=== PATIENT | male | born 1945 | race Caucasian/White ===

== ENCOUNTER 2018-06-05 14:29 | Emergency (ER) | payer OTHER ==
--- OUTSIDE RECORDS SUMMARY | 2018-06-05 14:32 | XMS REPORT | Clinical Summary ---
:1945 Author Organization [facility] Address [address] [place] [address] Care Team Providers Name Role Phone Pcp, No Primary Care Provider Unavailable Allergies Active Allergy Reactions Severity Noted Date Comments Penicillins 08/29/2016 Unknown reaction;as a child Medications Medication Sig Dispensed Refills Start Date End Date Status metFORMIN Take 1,000 mg by 0 Active (GLUCOPHAGE) 1000 mouth 2 (two) MG tablet times daily with breakfast and dinner. tamsulosin (FLOMAX) Take 0.4 mg by 0 Active 0.4 mg Cp24 24 hr mouth 2 (two) capsule times daily. losartan (COZAAR) Take 100 mg by 0 Active 100 MG tablet mouth daily. simvastatin (ZOCOR) Take 40 mg by 0 Active 40 MG tablet mouth nightly. finasteride Take 5 mg by 0 Active (PROSCAR) 5 mg mouth daily. tablet docusate sodium Take 1 capsule 10 capsule 0 11/02/2017 11/12/2017 (COLACE) 100 MG (100 mg total) by capsule mouth 2 (two) times daily for 10 days. acetaminophen-codei Take 1 tablet by 30 tablet 0 11/02/2017 11/12/2017 ne (TYLENOL #3) mouth every 4 300-30 mg per (four) hours as tablet needed for Pain for up to 10 days. Max Daily Amount: 6 tablets Active Problems Problem Noted Date Right renal mass 11/01/2017 Renal mass 10/31/2017 Encounters Date Type Specialty Care Team Description 10/31/2017 Surgery Omid Escobedo MD LAPAROSCOPY,NEPHREC EDENILSON-PARTIAL 10/31/2017 Anesthesia Event Tessy Cross NP 10/31/2017 - Hospital Encounter General Internal Omid Escobedo 11/02/2017 Medicine MD Ross 10/24/2017 Hospital Encounter Omid Escobedo MD 10/24/2017 Hospital Encounter Pre-Admission Omid Escobedo Testing MD Ross 10/24/2017 Outside Orders Omid Escobedo MD 10/24/2017 Orders Only Urology Keila Ji 10/23/2017 Orders Only Angelica Munoz Right kidney mass (Primary Dx); Pre-op testing after 06/04/2017 Social History Tobacco Use Types Packs/Day Years Used Date Former Smoker Smokeless Tobacco: Never Used Comments: quit 1971 Alcohol Use Drinks/Week oz/Week Comments Yes rare Sex Assigned at Date Recorded Not on file Job Start Date Occupation Industry Not on file Not on file Not on file Travel History Travel Start Travel End No recent travel history available. Last Filed Vital Signs Vital Sign Reading Time Taken Blood Pressure 164/80 11/02/2017 11:00 AM CDT Pulse 89 11/02/2017 11:00 AM CDT Temperature 35.9 C (96.6 F) 11/02/2017 11:00 AM CDT Respiratory Rate 17 11/02/2017 11:00 AM CDT Oxygen Saturation 94% 11/02/2017 11:00 AM CDT Inhaled Oxygen Concentration - - Weight 112.6 kg (248 lb 3.2 oz) 10/31/2017 6:03 AM CDT Height 177.8 cm (5' 10") 10/31/2017 6:03 AM CDT Body Mass Index 35.61 10/31/2017 6:03 AM CDT Plan of Treatment Not on file Procedures Procedure Name Priority Date/Time Associated Comments Diagnosis POCT-GLUCOSE METER Routine 11/02/2017 12:41 Results for this PM CDT procedure are in the results section. POCT-GLUCOSE METER Routine 11/02/2017 8:49 Results for this AM CDT procedure are in the results section. CBC W/PLT COUNT & Routine 11/02/2017 4:05 Results for this AUTO DIFFERENTIAL AM CDT procedure are in the results section. CBC W/PLT COUNT & Routine 11/02/2017 4:05 Results for this AUTO DIFFERENTIAL AM CDT procedure are in the results section. BASIC METABOLIC PANEL Routine 11/02/2017 4:05 Results for this (7) AM CDT procedure are in the results section. TRANSFUSION SERVICE 11/01/2017 6:00 REPORT - SCAN PM CDT POCT-GLUCOSE METER Routine 11/01/2017 5:18 Results for this PM CDT procedure are in the results section. POCT-GLUCOSE METER Routine 11/01/2017 12:39 Results for this PM CDT procedure are in the results section. POCT-GLUCOSE METER Routine 11/01/2017 7:42 Results for this AM CDT procedure are in the results section. CBC W/PLT COUNT & Routine 11/01/2017 4:25 Results for this AUTO DIFFERENTIAL AM CDT procedure are in the results section. CBC W/PLT COUNT & Routine 11/01/2017 4:25 Results for this AUTO DIFFERENTIAL AM CDT procedure are in the results section. BASIC METABOLIC PANEL Routine 11/01/2017 4:25 Results for this (7) AM CDT procedure are in the results section. BASIC METABOLIC PANEL Routine 10/31/2017 10:55 Results for this (7) PM CDT procedure are in the results section. POCT-GLUCOSE METER Routine 10/31/2017 10:08 Results for this PM CDT procedure are in the results section. POCT-GLUCOSE METER Routine 10/31/2017 6:51 Results for this PM CDT procedure are in the results section. PREPARE RBC STAT 10/31/2017 1:57 Results for this PM CDT procedure are in the results section. HEMOGLOBIN AND Routine 10/31/2017 1:49 Results for this HEMATOCRIT PM CDT procedure are in the results section. BASIC METABOLIC PANEL Routine 10/31/2017 1:49 Results for this (7) PM CDT procedure are in the results section. TISSUE EXAM AP Routine 10/31/2017 1:10 Results for this PM CDT procedure are in the results section. PROCEDURE W/ DAVINCI 10/31/2017 7:30 Renal mass AM CDT Special Needs (DAVINCI - XI NOT REQUESTED, INTRAOPERATIVE ULTRASOUND, BK ULTRASOUND PROBE, AIR SEAL) ROBOTIC LAPAROSCOPY,NEPHRECTOMY-PARTIAL 10/31/2017 7:30 AM CDT Renal mass Special Needs (DAVINCI - XI NOT REQUESTED, INTRAOPERATIVE ULTRASOUND, BK ULTRASOUND PROBE, AIR SEAL) POCT-GLUCOSE METER Routine 10/31/2017 6:25 AM CDT TRANSFUSION SERVICE REPORT 10/25/2017 5:54 PM CDT - SCAN XR CHEST 2 VIEWS Routine 10/24/2017 2:19 PM CDT CBC W/PLT COUNT & AUTO Routine 10/24/2017 2:01 PM CDT Results for this DIFFERENTIAL procedure are in the results section. TYPE AND SCREEN, AUTOMATED Routine 10/24/2017 2:01 PM CDT APTT Routine 10/24/2017 2:01 PM CDT PROTHROMBIN TIME/INR Routine 10/24/2017 2:01 PM CDT CBC W/PLT COUNT & AUTO Routine 10/24/2017 2:01 PM CDT Results for this DIFFERENTIAL procedure are in the results section. BASIC METABOLIC PANEL (7) Routine 10/24/2017 2:01 PM CDT URINE CULTURE Routine 10/24/2017 2:01 PM CDT after 06/04/2017 Results POC-Glucose meter (11/02/2017 12:41 PM CDT)Only the most recent of8 resultswithin the time period is included. POC-Glucose Meter 184 (H)Comment: TESTED AT 70 - 110 mg/dL [facility] [address] [facility] [place] [address] Specimen Blood Performing Organization Address City/State/Zipcode Phone Number [address] [address] [phone] CENTER CBC with platelet count + automated diff (11/02/2017 4:05 AM CDT)Only the most recent of3 resultswithin the time period is included. WBC 11.1 (H) 3.5 - 10.5 K/L [facility] RBC 4.42 (L) 4.63 - 6.08 M/L [facility] Hemoglobin 14.2 13.7 - 17.5 GM/DL [facility] Hematocrit 41.8 40.1 - 51.0 % [facility] MCV 94.6 (H) 79.0 - 92.2 fL [facility] MCH 32.1 25.7 - 32.2 pg [facility] MCHC 34.0 32.3 - 36.5 GM/DL [facility] RDW 12.7 11.6 - 14.4 % [facility] Platelets 204 150 - 450 K/CU MM [facility] MPV 10.7 9.4 - 12.4 fL [facility] nRBC 0 0 - 0 /100 WBC [facility] % Neutros 73 % [facility] % Lymphs 15 % [facility] % Monos 10 % [facility] % Eos 1 % [facility] % Baso 0 % [facility] # Neutros 8.12 (H) 1.78 - 5.38 K/L [facility] # Lymphs 1.61 1.32 - 3.57 K/L [facility] # Monos 1.15 (H) 0.30 - 0.82 K/L [facility] # Eos 0.16 0.04 - 0.54 K/L [facility] # Baso 0.04 0.01 - 0.08 K/L [facility] Immature Granulocytes-Relative 0 0 - 1 % [facility] Specimen Blood Performing Organization Address City/State/Zipcode Phone Number [facility] [address] [place] [address] CENTER Basic Metabolic Panel - POD 1 (11/02/2017 4:05 AM CDT)Only the most recent of5 resultswithin the time period is included. Sodium 137 136 - 145 meq/L [facility] Potassium 4.5 3.5 - 5.1 meq/L [facility] Chloride 106 98 - 107 meq/L [facility] CO2 23 22 - 29 meq/L [facility] BUN 13 7 - 21 mg/dL [facility] Creatinine 0.94 0.57 - 1.25 mg/dL [facility] Glucose 205 (H) 70 - 105 mg/dL [facility] Calcium 8.8 8.4 - 10.2 mg/dL [facility] EGFR 78Comment: ESTIMATED GFR IS mL/min/1.73 sq m [facility] NOT ACCURATE CREATININE [facility] CLEARANCE IN PREDICTING GLOMERULAR FILTRATION RATE. ESTIMATED GFR IS NOT APPLICABLE FOR DIALYSIS PATIENTS. Specimen Blood Narrative Performed At Before arterial line is discontinued [facility] Performing Organization Address City/[facility] Centercode Phone Number [place] [id number] [phone] CENTER TRANSFUSION SERVICE REPORT - SCAN (11/01/2017 6:00 PM CDT)Only the most recent of2 resultswithin the time period is included. Narrative Performed At Prepare RBC (10/31/2017 1:57 PM CDT) CROSSMATCH COMPATIBLE SAFETRACE TX Unit ABO O Pos SAFETRACE TX UNIT NUMBER [id number] [place]AF[place]ACE [place] Status RETURNED FROM ISSUE SAFETRACE TX Blood Bank Product RED BLOOD CELLS SAFETRACE TX PRODUCT CODE [id number] SAFETRACE TX CROSSMATCH COMPATIBLE SAFETRACE TX Unit ABO O Pos SAFETRACE TX UNIT NUMBER [id number] [facility]AFET[facility]ACE TX Status RETURNED FROM ISSUE SAFETRACE TX Blood Bank Product RED BLOOD CELLS [place] PRODUCT CODE [id number] SAFETRACE [place] Performing Organization Address City/State/Zipcode Phone Number [place] Hemoglobin and hematocrit (10/31/2017 1:49 PM CDT) Hemoglobin 14.1 13.7 - 17.5 GM/DL [facility] Hematocrit 43.2 40.1 - 51.0 % [facility] Specimen Blood Performing Organization Address City/State/Zipcode Phone Number [facility] [address] [place] [address] CENTER Tissue Exam (10/31/2017 1:10 PM CDT) Case Report Surgical Pathology Report Case: [id number] [facility] Authorizing Provider:Omid Escobedo MD Collected: 10/31/2017 [address] [facility] Ordering Location: [facility] PERIOPERATIVE Received: 10/31/2017 1504 SERVICES Pathologist: Emilia Carmona MD Specimen:Soft Tissue, Other, right renal mass DIAGNOSIS KIDNEY, RIGHT, PARTIAL NEPHRECTOMY: [facility] - CLEAR CELL RENAL CELL CARCINOMA, 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 [facility] - TUMOR SIZE: 3.5 X 3.0 X 2.0 CM - LIMITED TO THE KIDNEY - NO LYMPHOVASCULAR INVASION IDENTIFIED - NO NECROSIS SEEN - MARGINS NEGATIVE FOR CARCINOMA - SEE SYNOPTIC REPORT Signing Pathologist Direct Phone Line: [phone] SYNOPTIC REPORT KIDNEY: Nephrectomy(Kidney Res - All Specimens) [facility] SPECIMEN Procedure:Partial nephrectomy Specimen Laterality:Right TUMOR Tumor Site:Lower pole Histologic Type:Clear cell renal cell carcinoma Histologic Grade (WHO / ISUP Grade):G3: Nucleoli conspicuous and eosinophilic at 100x magnification Tumor Size:Greatest dimension in Centimeters (cm): 3.5 Centimeters (cm) Additional Dimension in Centimeters (cm):3 Centimeters (cm) Additional Dimension in Centimeters (cm):2 Centimeters (cm) Tumor Focality:Unifocal Tumor Extent: Tumor Extension:Tumor limited to kidney Accessory Findings: Sarcomatoid Features:Not identified Rhabdoid Features:Not identified Tumor Necrosis:Not identified Lymphovascular Invasion:Not identified MARGINS Margins:Uninvolved by invasive carcinoma LYMPH NODES Regional Lymph Nodes:No lymph nodes submitted or found PATHOLOGIC STAGE CLASSIFICATION (pTNM, AJCC 8th Edition) Primary Tumor (pT):pT1a Regional Lymph Nodes (pN):pNX ADDITIONAL FINDINGS Pathologic Findings in Nonneoplastic Kidney:None identified CPT Code(s) 80436 [facility] CLINICAL HISTORY Right renal mass [facility] SPECIMEN SOURCE Right renal mass [facility] GROSS DESCRIPTION Received fresh labeled "soft tissue, other", description "right renal mass" is a 6.0 x 4.5 x 3.0 cm right partial nephrectomy specimen. [facility] The capsular sections is purple-jovel to yellow and exhibits focal attached perinephric adipose tissue. The specimen is serially sectioned to reveal a 3.5 x 3.0 x 2.0 cm, ill- defined, yellow-gold to red, lobulated, hemorrhagic masswhich abuts the parenchymal resection margin and capsule. The surrounding uninvolved renal parenchyma is dark-brown, homogeneous, dense and unremarkable. Ink code: Parenchymal resection margin-black, capsule-blue. [employer] sequential sections to include the entire mass are submitted in cassettes [id number]. DB/ew MICROSCOPIC DESCRIPTION Performed. [facility] Specimen Tissue - Soft Tissue, Other Performing Organization Address City/State/Zipcode Phone Number [facility] [address] [place] [address] CENTER XR chest 2 views (10/24/2017 2:19 PM CDT) Narrative Performed At Addendum Begins [employer] RIS REPORT STATUS:A Addendum: CLINICAL INFORMATION: Robotic laparoscopic partial nephrectomy Signed: Madina Chambers MD Report Verified Date/Time:11/16/2017 16:11:26 Reading Location: [facility] C013Y CT Body Reading Room Addendum Ends FINAL REPORT PA and Lateral views of the chest dated 10/24/2017 Clinical information: preop Comment:Heart is normal in size. Pulmonary vasculature is unremarkable. A 7 mm calcified granuloma is seen in the left upper lobe. The rest of the lungs are clear. No pulmonary infiltrate or pleural effusion is present. Focal pleural calcification is seen in the left mid hemithorax. Impression:No active cardiopulmonary disease. Signed: Madina Chambers MD Report Verified Date/Time:10/24/2017 16:02:45 Reading Location: [address] Radiology Reading Room Procedure Note Interface, External Ris In - 11/16/2017 5:02 PM CDT Addendum Begins REPORT STATUS:A Addendum: CLINICAL INFORMATION: Robotic laparoscopic partial nephrectomy Signed: Madina Chambers MD Report Verified Date/Time: 11/16/2017 16:11:26 Reading Location: [facility] C013Y CT Body Reading Room Addendum Ends FINAL REPORT PA and Lateral views of the chest dated 10/24/2017 Clinical information: preop Comment: Heart is normal in size. Pulmonary vasculature is unremarkable. A 7 mm calcified granuloma is seen in the left upper lobe. The rest of the lungs are clear. No pulmonary infiltrate or pleural effusion is present. Focal pleural calcification is seen in the left mid hemithorax. Impression: No active cardiopulmonary disease. Signed: Madina Chambers MD Report Verified Date/Time: 10/24/2017 16:02:45 Reading Location: [address] Radiology Reading Room Performing Organization Address [facility] Centerconv Phone Number GE RIS Type and screen, automated (10/24/2017 2:01 PM CDT) ABO/RH AUTOMATED (BEAKER) O POSITIVE [facility] Ab Scrn NEGATIVE [facility] Specimen Blood Performing Organization Address [facility] Centercode Phone Number [address] [address] aPTT (10/24/2017 2:01 PM CDT) PTT 27.5 22.5 - 36.0 seconds [facility] Specimen Blood Performing Organization Address [facility] Centercode Phone Number [address] [address] [phone] CENTER Prothrombin time/INR (10/24/2017 2:01 PM CDT) Protime 13.9 11.7 - 14.7 seconds [facility] INR 1.1 <=5.9 [facility] Specimen Blood Narrative Performed At [facility] RECOMMENDED COUMADIN/WARFARIN INR THERAPY RANGES STANDARD DOSE: 2.0 - 3.0 Includes: PROPHYLAXIS for venous thrombosis, systemic embolization; TREATMENT for venous thrombosis and/or pulmonary embolus. HIGH RISK: Target INR is 2.5-3.5 for patients with mechanical heart valves. Performing Organization Address City/State/Zipcode Phone Number [facility] [address] [place] [address] CENTER Urine culture (10/24/2017 2:01 PM CDT) Result 30-39,000 col/mL skin dyana [facility] Specimen Urine - Urine, Unspecified Source Performing Organization Address [facility] Centercode Phone Number [address] [address] [phone] CENTER after 06/04/2017 Insurance Payer Benefit Plan / Group Subscriber ID Type Phone Address MEDICARE MEDICARE A B xxxxxxxxxx Medicare FOR LIFE xxxxxxxxxxx Other Govt (, [place], [facility], etc.) Advance Directives For more information, please contact:[address] [phone] Code Status Date Activated Date Inactivated Comments Full Code 10/31/2017 6:54 PM 11/02/2017 6:38 PM This code status was determined by: Patient
--- OUTSIDE RECORDS SUMMARY | 2018-06-05 14:33 | XMS REPORT ---
:1945 Author Organization [facility] Address [address] [place] [address] [address]. Pat[address] [place] [address] Care Team Providers Name Role Phone DUSTIN ESCOBEDO Unavailable Unavailable Problems This patient has no known problems. Allergies, Adverse Reactions, Alerts This patient has no known allergies or adverse reactions. Medications This patient has no known medications. Results Test Description Test Time Test Comments Text Results Atomic Results Result Comments RAD, CHEST, 2 2017-11-16 16:11:00 Reason for Addendum BeginsREPORT VIEWS exam:->preop STATUS:A Addendum: CLINICAL INFORMATION: Robotic laparoscopic partial nephrectomy Signed: Madina Chambers Verified Date/Time: 11/16/2017 16:11:26 Reading Location: [facility] C013Y CT Body Reading RoomAddendum EndsFINAL REPORT PA and Lateral views of the [...] No active cardiopulmonary disease. 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 - TUMOR SIZE: 3.5 X 3.0 X 2.0 CM - LIMITED TO THE KIDNEY - NO LYMPHOVASCULAR INVASION IDENTIFIED - NO NECROSIS SEEN - MARGINS NEGATIVE FOR CARCINOMA - SEE SYNOPTIC REPORT Signing Pathologist Direct Phone Line: [phone] y signed by Emilia Carmona MD on 11/06/2017 at 5:21 PMKIDNEY: Nephrectomy (Kidney Res - All Specimens)SPECIMEN Procedure: Partial nephrectomy Specimen Laterality: Right TUMOR Tumor Site: Lower pole Histologic Type: Clear cell renal cell carcinoma Histologic Grade (WHO / ISUP Grade): G3: Nucleoli conspicuous and eosinophilic at 100x magnification Tumor Size: Greatest dimension in Centimeters (cm): 3.5 Centimeters (cm) Additional Dimension in Centimeters (cm): 3 Centimeters (cm) Additional Dimension in Centimeters (cm): 2 Centimeters (cm) Tumor Focality: Unifocal Tumor Extent: Tumor Extension: Tumor limited to kidney Accessory Findings: Sarcomatoid Features: Not identified Rhabdoid Features: Not identified Tumor Necrosis: Not identified Lymphovascular Invasion: Not identified MARGINS Margins: Uninvolved by invasive carcinoma LYMPH NODES Regional Lymph Nodes: No lymph nodes submitted or found PATHOLOGIC STAGE CLASSIFICATION (pTNM, AJCC 8th Edition) Primary Tumor (pT): pT1a Regional Lymph Nodes (pN): pNX ADDITIONAL FINDINGS Pathologic Findings in Nonneoplastic Kidney: None identified [id number] renal mass Right renal mass Received fresh labeled "soft tissue, other", description "right renal mass" is a 6.0 x 4.5 x 3.0 cm right partial nephrectomy specimen.The capsular sections is purple-jovel to yellow and exhibits focal attached perinephric adipose tissue.The specimen is serially sectioned to reveal a 3.5 x 3.0 x 2.0 cm, ill-defined, yellow-gold to red, lobulated, hemorrhagic masswhich abuts the parenchymal resection margin and capsule.The surrounding uninvolved renal parenchyma is dark-brown, homogeneous, dense and unremarkable.Ink code: Parenchymal resection margin-black, capsule-blue.Representati ve sequential sections to include the entire mass are submitted in cassettes A1-A13. DB/ew Performed. POCT-GLUCOSE METER 2017-11-02 12:43:00 Test Item Value Reference Range Comments POC-GLUCOSE METER (BEAKER) (test 184 mg/dL 70-110 TESTED AT [facility] [address] ezgo=1712) [facility] [address] POCT-GLUCOSE [id number] 08:51:00 Test Item Value Reference Range Comments POC-GLUCOSE METER (BEAKER) 202 mg/dL 70-110 TESTED AT [facility] [address] [facility] (test fnbn=7757) [facility] [address] BASIC METABOLIC [id number] 05:12:00 Test Item Value Reference Range Comments SODIUM (BEAKER) (test 137 meq/L 136-145 ixcm=704) POTASSIUM (BEAKER) (test 4.5 meq/L 3.5-5.1 phsh=177) CHLORIDE (BEAKER) (test 106 meq/L 98-107 kqhd=180) CO2 (BEAKER) (test 23 meq/L 22-29 nswh=280) BLOOD UREA NITROGEN 13 mg/dL 7-21 (BEAKER) (test dclf=851) CREATININE (BEAKER) (test 0.94 mg/dL 0.57-1.25 qppy=029) GLUCOSE RANDOM (BEAKER) 205 mg/dL 70-105 (test dnpk=461) CALCIUM (BEAKER) (test 8.8 mg/dL 8.4-10.2 osgf=151) EGFR (BEAKER) (test 78 mL/min/1.73 sq m ESTIMATED GFR IS NOT rxzy=4901) ACCURATE CREATININE CLEARANCE IN PREDICTING GLOMERULAR FILTRATION RATE. ESTIMATED GFR IS NOT APPLICABLE FOR DIALYSIS PATIENTS. Before arterial line is discontinuedCB W/PLT COUNT & AUTO [id number] 06-21 04:53:00 Test Item Value Reference Range Comments WHITE BLOOD CELL COUNT (BEAKER) (test nphg=443) 11.1 K/ L 3.5-10.5 RED BLOOD CELL COUNT (BEAKER) (test nxoo=524) 4.42 M/ L 4.63-6.08 HEMOGLOBIN (BEAKER) (test zdll=653) 14.2 GM/DL 13.7-17.5 HEMATOCRIT (BEAKER) (test lugn=762) 41.8 % 40.1-51.0 MEAN CORPUSCULAR VOLUME (BEAKER) (test cnxd=286) 94.6 fL 79.0-92.2 MEAN CORPUSCULAR HEMOGLOBIN (BEAKER) (test 32.1 pg 25.7-32.2 wnuv=880) MEAN CORPUSCULAR HEMOGLOBIN CONC (BEAKER) (test 34.0 GM/DL 32.3-36.5 bfre=348) RED CELL DISTRIBUTION WIDTH (BEAKER) (test 12.7 % 11.6-14.4 wsnv=302) PLATELET COUNT (BEAKER) (test piik=176) 204 K/CU MM 150-450 MEAN PLATELET VOLUME (BEAKER) (test rlyv=741) 10.7 fL 9.4-12.4 NUCLEATED RED BLOOD CELLS (BEAKER) (test 0 /100 WBC 0-0 xamt=190) NEUTROPHILS RELATIVE PERCENT (BEAKER) (test 73 % isij=625) LYMPHOCYTES RELATIVE PERCENT (BEAKER) (test 15 % djln=311) MONOCYTES RELATIVE PERCENT (BEAKER) (test 10 % jhfo=005) EOSINOPHILS RELATIVE PERCENT (BEAKER) (test 1 % kwje=254) BASOPHILS RELATIVE PERCENT (BEAKER) (test 0 % avsc=809) NEUTROPHILS ABSOLUTE COUNT (BEAKER) (test 8.12 K/ L 1.78-5.38 bzvw=585) LYMPHOCYTES ABSOLUTE COUNT (BEAKER) (test 1.61 K/ L 1.32-3.57 juud=876) MONOCYTES ABSOLUTE COUNT (BEAKER) (test 1.15 K/ L 0.30-0.82 ghrl=962) EOSINOPHILS ABSOLUTE COUNT (BEAKER) (test 0.16 K/ L 0.04-0.54 jzdo=239) BASOPHILS ABSOLUTE COUNT (BEAKER) (test 0.04 K/ L 0.01-0.08 gsrg=336) IMMATURE GRANULOCYTES-RELATIVE PERCENT (BEAKER) 0 % 0-1 (test kbkc=7556) POCT-GLUCOSE [id number] 17:21:00 Test Item Value Reference Range Comments POC-GLUCOSE METER (BEAKER) 225 mg/dL 70-110 TESTED AT [address] (test lbxx=6638) [facility] [address] POCT-GLUCOSE [id number] 12:41:00 Test Item Value Reference Range Comments POC-GLUCOSE METER (BEAKER) 178 mg/dL 70-110 TESTED AT [address] (test pyrd=5888) [facility] [address] POCT-GLUCOSE [id number] 07:44:00 Test Item Value Reference Range Comments POC-GLUCOSE METER (BEAKER) 178 mg/dL 70-110 TESTED AT [facility] [address] [facility] (test csqq=0677) [facility] [address] BASIC METABOLIC [id number] 05:38:00 Test Item Value Reference Range Comments SODIUM (BEAKER) (test 139 meq/L 136-145 kzmu=110) POTASSIUM (BEAKER) (test 4.1 meq/L 3.5-5.1 uimm=790) CHLORIDE (BEAKER) (test 107 meq/L 98-107 gryn=384) CO2 (BEAKER) (test 24 meq/L 22-29 rlkq=307) BLOOD UREA NITROGEN 15 mg/dL 7-21 (BEAKER) (test arbj=975) CREATININE (BEAKER) (test 0.98 mg/dL 0.57-1.25 dzdw=135) GLUCOSE RANDOM (BEAKER) 146 mg/dL 70-105 (test sory=093) CALCIUM (BEAKER) (test 8.7 mg/dL 8.4-10.2 igyy=902) EGFR (BEAKER) (test 75 mL/min/1.73 sq m ESTIMATED GFR IS NOT uipg=1754) ACCURATE CREATININE CLEARANCE IN PREDICTING GLOMERULAR FILTRATION RATE. ESTIMATED GFR IS NOT APPLICABLE FOR DIALYSIS PATIENTS. [facility] AUTO [id number] 06-20 05:30:00 Test Item Value Reference Range Comments WHITE BLOOD CELL COUNT (BEAKER) (test bfdq=588) 13.0 K/ L 3.5-10.5 RED BLOOD CELL COUNT (BEAKER) (test xmgg=919) 4.54 M/ L 4.63-6.08 HEMOGLOBIN (BEAKER) (test ozwr=447) 14.0 GM/DL 13.7-17.5 HEMATOCRIT (BEAKER) (test pphw=914) 43.6 % 40.1-51.0 MEAN CORPUSCULAR VOLUME (BEAKER) (test qnfd=039) 96.0 fL 79.0-92.2 MEAN CORPUSCULAR HEMOGLOBIN (BEAKER) (test 30.8 pg 25.7-32.2 jlst=439) MEAN CORPUSCULAR HEMOGLOBIN CONC (BEAKER) (test 32.1 GM/DL 32.3-36.5 tthq=893) RED CELL DISTRIBUTION WIDTH (BEAKER) (test 12.8 % 11.6-14.4 hgdg=907) PLATELET COUNT (BEAKER) (test hxbd=662) 226 K/CU MM 150-450 MEAN PLATELET VOLUME (BEAKER) (test rmag=064) 10.8 fL 9.4-12.4 NUCLEATED RED BLOOD CELLS (BEAKER) (test 0 /100 WBC 0-0 qbgb=057) NEUTROPHILS RELATIVE PERCENT (BEAKER) (test 72 % mday=048) LYMPHOCYTES RELATIVE PERCENT (BEAKER) (test 18 % bfdl=622) MONOCYTES RELATIVE PERCENT (BEAKER) (test 10 % znqo=550) EOSINOPHILS RELATIVE PERCENT (BEAKER) (test 1 % oupl=548) BASOPHILS RELATIVE PERCENT (BEAKER) (test 0 % sykl=579) NEUTROPHILS ABSOLUTE COUNT (BEAKER) (test 9.29 K/ L 1.78-5.38 cbid=192) LYMPHOCYTES ABSOLUTE COUNT (BEAKER) (test 2.27 K/ L 1.32-3.57 npgx=862) MONOCYTES ABSOLUTE COUNT (BEAKER) (test 1.29 K/ L 0.30-0.82 itnz=543) EOSINOPHILS ABSOLUTE COUNT (BEAKER) (test 0.06 K/ L 0.04-0.54 jlsi=977) BASOPHILS ABSOLUTE COUNT (BEAKER) (test 0.02 K/ L 0.01-0.08 wlsr=289) IMMATURE GRANULOCYTES-RELATIVE PERCENT (BEAKER) 0 % 0-1 (test qyzp=5209) BASIC METABOLIC [id number] 23:33:00 Test Item Value Reference Range Comments SODIUM (BEAKER) (test 140 meq/L 136-145 jlnw=860) POTASSIUM (BEAKER) (test 5.0 meq/L 3.5-5.1 otwc=115) CHLORIDE (BEAKER) (test 104 meq/L 98-107 wkny=688) CO2 (BEAKER) (test 25 meq/L 22-29 rhpt=767) BLOOD UREA NITROGEN 19 mg/dL 7-21 (BEAKER) (test sukx=898) CREATININE (BEAKER) (test 1.15 mg/dL 0.57-1.25 wsyj=381) GLUCOSE RANDOM (BEAKER) 179 mg/dL 70-105 (test lqrd=192) CALCIUM (BEAKER) (test 9.1 mg/dL 8.4-10.2 zdiz=490) EGFR (BEAKER) (test 62 mL/min/1.73 sq m ESTIMATED GFR IS NOT inmh=9489) ACCURATE CREATININE CLEARANCE IN PREDICTING GLOMERULAR FILTRATION RATE. ESTIMATED GFR IS NOT APPLICABLE FOR DIALYSIS PATIENTS. POCT-GLUCOSE [id number] 22:11:00 Test Item Value Reference Range Comments POC-GLUCOSE METER (BEAKER) 169 mg/dL 70-110 TESTED AT [facility] [address] [facility] (test fpum=2094) [facility] [address] POCT-GLUCOSE [id number] 18:53:00 Test Item Value Reference Range Comments POC-GLUCOSE METER (BEAKER) 211 mg/dL 70-110 TESTED AT [address] (test mwnp=6892) [place] [id number] BASIC METABOLIC [id number] 14:20:00 Test Item Value Reference Range Comments SODIUM (BEAKER) (test 136 meq/L 136-145 iufz=472) POTASSIUM (BEAKER) (test 5.7 meq/L 3.5-5.1 ckgu=011) CHLORIDE (BEAKER) (test 107 meq/L 98-107 msey=997) CO2 (BEAKER) (test 21 meq/L 22-29 zfco=352) BLOOD UREA NITROGEN 23 mg/dL 7-21 (BEAKER) (test ipzf=630) CREATININE (BEAKER) (test 1.21 mg/dL 0.57-1.25 jivf=375) GLUCOSE RANDOM (BEAKER) 261 mg/dL 70-105 (test efpw=308) CALCIUM (BEAKER) (test 8.3 mg/dL 8.4-10.2 rudc=107) EGFR (BEAKER) (test 59 mL/min/1.73 sq m ESTIMATED GFR IS NOT umhi=0806) ACCURATE CREATININE CLEARANCE IN PREDICTING GLOMERULAR FILTRATION RATE. ESTIMATED GFR IS NOT APPLICABLE FOR DIALYSIS PATIENTS. [facility] [id number] 14:03:00 Test Item Value Reference Range Comments HEMOGLOBIN (BEAKER) (test fnmr=988) 14.1 GM/DL 13.7-17.5 HEMATOCRIT (BEAKER) (test nwrt=900) 43.2 % 40.1-51.0 POCT-GLUCOSE [id number] 06:28:00 Test Item Value Reference Range Comments POC-GLUCOSE METER (BEAKER) 199 mg/dL 70-110 TESTED AT [facility] [address] (test samn=0734) [facility] [address] URINE [id number] 13:40:00 Test Item Value Reference Range Comments CULTURE (BEAKER) (test 30-39,000 col/mL skin dyana fhjl=0693) BASIC METABOLIC [id number] 14:41:00 Test Item Value Reference Range Comments SODIUM (BEAKER) (test 138 meq/L 136-145 gvtu=586) POTASSIUM (BEAKER) (test 5.1 meq/L 3.5-5.1 ofll=949) CHLORIDE (BEAKER) (test 105 meq/L 98-107 zbkj=546) CO2 (BEAKER) (test 27 meq/L 22-29 rsyl=573) BLOOD UREA NITROGEN 18 mg/dL 7-21 (BEAKER) (test fmbv=463) CREATININE (BEAKER) (test 1.02 mg/dL 0.57-1.25 usuh=865) GLUCOSE RANDOM (BEAKER) 164 mg/dL 70-105 (test vvtm=818) CALCIUM (BEAKER) (test 9.8 mg/dL 8.4-10.2 owtn=633) EGFR (BEAKER) (test 71 mL/min/1.73 sq m ESTIMATED GFR IS NOT frer=0089) ACCURATE CREATININE CLEARANCE IN PREDICTING GLOMERULAR FILTRATION RATE. ESTIMATED GFR IS NOT APPLICABLE FOR DIALYSIS PATIENTS. [id number] 14:39:00 Test Item Value Reference Range Comments PARTIAL THROMBOPLASTIN TIME (BEAKER) (test 27.5 seconds 22.5-36.0 dpbw=646) PROTHROMBIN [id number] 14:38:00 Test Item Value Reference Range Comments PROTIME (BEAKER) (test sqlb=964) 13.9 seconds 11.7-14.7 INR (BEAKER) (test qkpp=014) 1.1 <=5.9 RECOMMENDED COUMADIN/WARFARIN INR THERAPY RANGESSTANDARD DOSE: 2.0 - 3.0 Includes: PROPHYLAXIS forvenous thrombosis, systemic embolization; TREATMENT for venous thrombosis and/or pulmonary embolus.HIGH RISK: Target INR is 2.5-3.5 for patients with mechanical heart valves.CBC W/PLT COUNT & AUTO [id number] 14:20:00 Test Item Value Reference Range Comments WHITE BLOOD CELL COUNT (BEAKER) (test cntu=710) 8.9 K/ L 3.5-10.5 RED BLOOD CELL COUNT (BEAKER) (test bvpy=630) 4.82 M/ L 4.63-6.08 HEMOGLOBIN (BEAKER) (test xpux=931) 15.3 GM/DL 13.7-17.5 HEMATOCRIT (BEAKER) (test oejp=565) 46.3 % 40.1-51.0 MEAN CORPUSCULAR VOLUME (BEAKER) (test uwri=705) 96.1 fL 79.0-92.2 MEAN CORPUSCULAR HEMOGLOBIN (BEAKER) (test 31.7 pg 25.7-32.2 glvy=947) MEAN CORPUSCULAR HEMOGLOBIN CONC (BEAKER) (test 33.0 GM/DL 32.3-36.5 harz=147) RED CELL DISTRIBUTION WIDTH (BEAKER) (test 12.4 % 11.6-14.4 nbxm=995) PLATELET COUNT (BEAKER) (test lmeu=535) 242 K/CU MM 150-450 MEAN PLATELET VOLUME (BEAKER) (test syfu=703) 10.7 fL 9.4-12.4 NUCLEATED RED BLOOD CELLS (BEAKER) (test 0 /100 WBC 0-0 gdzm=359) NEUTROPHILS RELATIVE PERCENT (BEAKER) (test 64 % opta=831) LYMPHOCYTES RELATIVE PERCENT (BEAKER) (test 25 % irja=056) MONOCYTES RELATIVE PERCENT (BEAKER) (test 7 % ivax=116) EOSINOPHILS RELATIVE PERCENT (BEAKER) (test 4 % dyso=126) BASOPHILS RELATIVE PERCENT (BEAKER) (test 1 % rwnp=904) NEUTROPHILS ABSOLUTE COUNT (BEAKER) (test 5.69 K/ L 1.78-5.38 edsb=950) LYMPHOCYTES ABSOLUTE COUNT (BEAKER) (test 2.22 K/ L 1.32-3.57 xqjm=124) MONOCYTES ABSOLUTE COUNT (BEAKER) (test 0.59 K/ L 0.30-0.82 xekk=742) EOSINOPHILS ABSOLUTE COUNT (BEAKER) (test 0.35 K/ L 0.04-0.54 qlir=505) BASOPHILS ABSOLUTE COUNT (BEAKER) (test 0.05 K/ L 0.01-0.08 ybjl=092) IMMATURE GRANULOCYTES-RELATIVE PERCENT (BEAKER) 0 % 0-1 (test lxac=9100)
--- NOTE | 2018-06-05 15:27 | RAD REPORT ---
EXAM DESCRIPTION: CT - Head Brain Wo Cont - 06/05/2018 3:18 pm CLINICAL HISTORY: Left facial droop COMPARISON: None. TECHNIQUE: Computed axial tomography of the head was obtained. IV contrast was not requested. All CT scans are performed using dose optimization technique as appropriate and may include automated exposure control or mA/KV adjustment according to patient size. FINDINGS: An intracranial bleed is not seen . The ventricles are normal in caliber. No extra-axial fluid collection is noted. Mild low-density areas within periventricular white matter likely represents ischemic changes secondary to small vessel disease Fluid within the sinuses/ mastoids is not seen. IMPRESSION: No acute intracranial abnormality is seen. If patient's symptoms persist MRI of the bra in would be recommended.
--- NOTE | 2018-06-05 16:17 | EDPHYS ---
Physician Documentation [facility] Name: Angel Luis Graves Age: 72 yrs Sex: Male : 1945 Arrival Date: 06/05/2018 Time: 14:33 Bed 5 Private MD: MITCH, [place] ED Physician Jamar Obregon HPI: 06/05 15:19 This 72 yrs old Male presents to ER via Ambulatory with complaints of Facial rn Droop. 15:19 The patient presents to the emergency department with weakness of the left side of the rn face, that is moderate. Onset: The symptoms/episode began/occurred yesterday. Severity of symptoms: At their worst the symptoms were moderate in the emergency department the symptoms are unchanged. The patient has not experienced similar symptoms in the past. Reports left facial droop, didn't notice onset but went to eye doctor today for left eye irritation, told to come to ER to make sure just bells palsy. REports noticed yesterday some dribbling of fluid when drinking out of left side of mouth, and left eye irritation and watering. No extremity weakness/numbness. . Historical: - Allergies: 14:49 PENICILLINS; ss - PMHx: 14:49 diabetes; Hypertension; High Cholesterol; ss - PSHx: 14:49 Appendectomy; ss - Immunization history:: Adult Immunizations up to date. - Social history:: Smoking status: Patient/guardian denies using tobacco. - Ebola Screening: : Patient denies exposure to infectious person Patient denies travel to an Ebola-affected area in the 21 days before illness onset. - Family history:: not pertinent. - Hospitalizations: : No recent hospitalization is reported. ROS: 15:19 Constitutional: Negative for fever, chills, and weight loss, Eyes: + left eye rn irritation Cardiovascular: Negative for chest pain, palpitations, and edema, Respiratory: Negative for shortness of breath, cough, wheezing, and pleuritic chest pain, Abdomen/GI: Negative for abdominal pain, nausea, vomiting, diarrhea, and constipation, Back: Negative for injury and pain, MS/Extremity: Negative for injury and deformity, Skin: Negative for injury, rash, and discoloration, Neuro: + left facial weakness Exam: 15:19 Constitutional: This is a well developed, well nourished patient who is awake, alert, rn and in no acute distress. Head/Face: Normocephalic, atraumatic. Eyes: Pupils equal round and reactive to light, extra-ocular motions intact. Lids and lashes normal. Mild left scleral injection. Cornea within normal limits. Periorbital areas with no swelling, redness, or edema. Cardiovascular: Regular rate and rhythm. No pulse deficits. Respiratory: Lungs have equal breath sounds bilaterally, clear to auscultation. No increased work of breathing, no retractions or nasal flaring. Skin: Warm, dry with normal turgor. Normal color with no rashes, no lesions, and no evidence of cellulitis. MS/ Extremity: Pulses equal, no cyanosis. Neurovascular intact. Full, normal range of motion. Equal circumference. Neuro: Awake and alert, GCS 15, oriented to person, place, time, and situation. + left facial droop involving upper and lower face, unable to close left eye. Motor strength 5/5 in all extremities. Sensory grossly intact. Cerebellar exam normal. Normal gait. Vital Signs: 14:49 BP 158 / 78; Pulse 86; Resp 17; Temp 97.6(TE); Pulse Ox 95% on R/A; Weight 112.04 kg; ss Height 5 ft. 10 in. (177.80 cm); Pain 0/10; 14:49 Body Mass Index 35.44 (112.04 kg, 177.80 cm) ss MDM: 14:36 Patient medically screened. rn 14:45 ED course: Onset likely yesterday given her recalls was drinking something yesterday rn and noticed dribbling. Also left eye complaint likely related since unable to close and symptoms also began yesterday. . 16:15 Data reviewed: vital signs, nurses notes, radiologic studies, CT scan, and as a result, rn I will discharge patient. Counseling: I had a detailed discussion with the patient and/or guardian regarding: the historical points, exam findings, and any diagnostic results supporting the discharge/admit diagnosis, radiology results, the need for outpatient follow up, to return to the emergency department if symptoms worsen or persist or if there are any questions or concerns that arise at home. Special discussion: I discussed with the patient/guardian in detail that at this point there is no indication for admission to the hospital. It is understood, however, that if the symptoms persist or worsen the patient needs to return immediately for re-evaluation. Based on the history and exam findings, there is no indication for further emergent testing or inpatient evaluation. I discussed with the patient/guardian the need to see the neurologist for further evaluation of the symptoms. I discussed with the patient/guardian the need to see the primary care provider for further evaluation of the symptoms. 06/05 14:45 Order name: CT Head Brain wo Cont; Complete Time: 15:38 rn Administered Medications: No medications were administered Disposition: 06/05/18 16:17 Discharged to Home. Impression: Nayak's palsy. - Condition is Stable. - Discharge Instructions: Nayak Palsy, Adult. - Prescriptions for Acyclovir 400 mg Oral Tablet - take 1 tablet by ORAL route every 8 hours; 30 tablet. Medrol (Garry) 4 mg Oral Tablets, Dose Pack - take 1 tablet by ORAL route as directed - follow package instructions; 1 packet. - Medication Reconciliation Form, Thank You Letter, Antibiotic Education, Prescription Opioid Use form. - Follow up: Private Physician; When: As needed; Reason: Recheck today's complaints, Re-evaluation by your physician. - Problem is new. - Symptoms are unchanged. Signatures: Dispatcher [employer] EDKylee Minor RN RN Jamar Jones MD MD rn Smirch, Shelby, RN RN ss Corrections: (The following items were deleted from the chart) 16:31 16:17 06/05/2018 16:17 Discharged to Home. Impression: Nayak's palsy. Condition is sv Stable. Forms are Medication Reconciliation Form, Thank You Letter, Antibiotic Education, Prescription Opioid Use. Follow up: Private Physician; When: As needed; Reason: Recheck today's complaints, Re-evaluation by your physician. Problem is new. Symptoms are unchanged. rn
--- NOTE | 2018-06-05 16:17 | ER ---
Nurse's Notes [facility] Name: Angel Luis Graves Age: 72 yrs Sex: Male : 1945 Arrival Date: 06/05/2018 Time: 14:33 Bed 5 Private MD: MITCH MEYER Diagnosis: Nayak's palsy Presentation: 06/05 14:33 Presenting complaint: Patient states: L eye irritation that began yesterday. Pt went to the eye doctor who told patient his face seemed to be drooping on the L side. After being told by the doctor, the patient and his then realized that in fact his face was drooping on the L side. Pt has no other complaints at this time. Unix Consultant are equal bilaterally, Gait is steady. Transition of care: patient was not received from another setting of care. No acute neurological deficit is noted. Pre-hospital glucose is not applicable to this patient. Onset of symptoms was June 04, 2018. Risk Assessment: Do you want to hurt yourself or someone else? Patient reports no desire to harm self or others. Initial Sepsis Screen: Does the patient meet any 2 criteria? No. Patient's initial sepsis screen is negative. Does the patient have a suspected source of infection? No. Patient's initial sepsis screen is negative. Care prior to arrival: None. 14:33 Method Of Arrival: Ambulatory 14:33 Acuity: MICHAELA 4 ss Stroke Activation: Symptom onset > 6 hours Physician: Stroke Attending; Name: ; Notified At: ; Arrived At: Physician: Chief Stroke Resident; Name: ; Notified At: ; Arrived At: Physician: Stroke Resident; Name: ; Notified At: ; Arrived At: Physician: ED Attending; Name: ; Notified At: ; Arrived At: Physician: ED Resident; Name: ; Notified At: ; Arrived At: Historical: - Allergies: 14:49 PENICILLINS; ss - PMHx: 14:49 diabetes; Hypertension; High Cholesterol; ss - PSHx: 14:49 Appendectomy; - Immunization history:: Adult Immunizations up to date. - Social history:: Smoking status: Patient/guardian denies using tobacco. - Ebola Screening: : Patient denies exposure to infectious person Patient denies travel to an Ebola-affected area in the 21 days before illness onset. - Family history:: not pertinent. - Hospitalizations: : No recent hospitalization is reported. Screenin:48 Abuse screen: Denies threats or abuse. Denies injuries from another. Nutritional sv screening: No deficits noted. Tuberculosis screening: No symptoms or risk factors identified. Fall Risk None identified. Assessment: 14:38 Reassessment: Dr Obregon at bedside. sv 14:38 General: Appears in no apparent distress. comfortable, Behavior is calm, cooperative, sv appropriate for age. Pain: Denies pain. Neuro: Level of Consciousness is awake, alert, obeys commands, Oriented to person, place, time, situation, Moves all extremities. Full function Gait is steady, Speech is normal, Facial droop on left, Pt unable to close his left eye. Respiratory: Respiratory effort is even, unlabored, Respiratory pattern is regular, symmetrical. Derm: Skin is pink, warm \T\ dry. 14:40 Patient has been NPO before screening. The patient is alert, and able to follow sv commands. The patient does not exhibit slurred or garbled speech. The patient is not exhibiting difficulty speaking. The patient does not exhibit difficulty understanding words. The patient is able to swallow own secretions with no drooling or need for suction. Patient tolerated one teaspoon of water. No drooling, immediate coughing, gurgling, or clearing of the throat was noted. The patient tolerated 90mL of water. No drooling, immediate coughing, gurgling, or clearing of the throat was noted. The patient passed the bedside swallow screening. Oral medications may be given as ordered. Contact Physician for further diet orders. Provider notified of bedside swallow screening results: Jamar Obregon MD. T-PA (Activase) Screening: Contraindications: Patient reports onset of signs and symptoms of stroke greater than 6 hours ago: Yes. 14:49 Reassessment: No code stroke to be called per Dr Obregon. sv 16:29 Reassessment: Patient appears in no apparent distress at this time. No changes from sv previously documented assessment. Patient and/or family updated on plan of care and expected duration. Pain level reassessed. Patient is alert, oriented x 3, equal unlabored respirations, skin warm/dry/pink. Vital Signs: 14:49 BP 158 / 78; Pulse 86; Resp 17; Temp 97.6(TE); Pulse Ox 95% on R/A; Weight 112.04 kg; ss Height 5 ft. 10 in. (177.80 cm); Pain 0/10; 14:49 Body Mass Index 35.44 (112.04 kg, 177.80 cm) ED Course: 14:33 Patient arrived in ED. mr 14:33 Manuel Walters MD is Private Physician. mr 14:33 [place], MITCH is Private Physician. mr 14:36 Jamar Obregon MD is Attending Physician. rn 14:44 Kylee Renae RN is Primary Nurse. bd 14:48 Triage completed. ss 14:48 Patient has correct armband on for positive identification. Adult w/ patient. sv 14:49 Arm band placed on right wrist. ss 15:16 CT completed. Patient tolerated procedure well. Patient moved to CT via wheelchair. nj Patient moved back from CT. 15:17 CT Head Brain wo Cont In Process Unspecified. EDMS 16:29 No provider procedures requiring assistance completed. Patient did not have IV access sv during this emergency room visit. Administered Medications: No medications were administered Outcome: 16:17 Discharge ordered by MD. rn 16:29 Discharged to home ambulatory, with family. sv 16:29 Condition: stable 16:29 Discharge instructions given to patient, family, Instructed on discharge instructions, follow up and referral plans. medication usage, Demonstrated understanding of instructions, follow-up care, medications, Prescriptions given X 2. 16:31 Patient left the ED. sv Signatures: Dispatcher [employer] EDMS Yari Paz Kylee Renae, RN RN bernarda Keila Vickers mr Jamar Obregon MD MD rn Smirch, Shelby, RN RN ss Jordan, Nathan nj
== END 2018-06-05 16:31 | disposition home or self-care (01) ==
LOC: ER 14:29
DX: G51.0 Bell's palsy (principal)
CPT/HCPCS: 70450; 99284

== ENCOUNTER 2022-04-25 08:25 | Day surgery (SDC) | payer OTHER ==
[2022-04-22 16:06] LABS: Absolute Lymphocytes (CBC) 2.1 K/uL (0.7-4.9); Hematocrit 41.8 % (39.6-49.0); Lymphocytes % 25.1 % (15.3-44.8); MCV 93.3 fL (80-100); MPV 9.2 fL (7.6-11.3); RBC Red Blood Cell Count 4.48 M/uL (4.33-5.43)
--- NOTE | 2022-04-22 16:08 | RAD REPORT ---
EXAM DESCRIPTION: RAD - Chest Pa And Lat (2 Views) - 04/22/2022 3:56 pm CLINICAL HISTORY: pre op for surgery COMPARISON: Two view chest 12/02/2019 TECHNIQUE: Frontal and lateral views of the chest were obtained. FINDINGS: The lungs are clear of an acute infiltrate, mass or failure finding. Calcified pleural darling ques are present. Hilar regions are normal range and stable. Heart size is normal and central vasculature is within n ormal limits. No pleural effusion or pneumothorax seen. No acute bony finding noted. No aortic abn ormality. IMPRESSION: No acute lung parenchymal process. Calcified pleural plaquing similar to 2019 study.
[2022-04-22 16:15] LABS: Potassium 4.1 mmol/L (3.5-5.1)
[2022-04-25] MEDS ORDERED: NA CHLORIDE 0.9% 1,000 ML ONE (08:44)
[2022-04-25] MEDS ORDERED: METHYLENE BLUE 0.5% 10 ML AMP ONE (09:06)
[2022-04-25] MEDS ORDERED: KETOROLAC 30 MG/ML INJ ONE (09:17)
[2022-04-25] MEDS ORDERED: FENTANYL CITR 100 MCG/2 ML ONE (09:17)
[2022-04-25] MEDS ORDERED: dexAMETHasone 10 MG/ML VIAL ONE (09:17)
[2022-04-25] MEDS ORDERED: propofoL 200 MG/20 ML VIAL IV ONE (09:17)
[2022-04-25] MEDS ORDERED: ONDANSETRON 4 MG/2 ML VIAL ONE (09:18)
[2022-04-25] MEDS ORDERED: ROCURONIUM 50 MG/5 ML VIAL IV ONE (09:18)
[2022-04-25] MEDS ORDERED: LIDOCAINE 2% MPF 5 ML VIAL ONE (09:18)
[2022-04-25] MEDS ORDERED: CIPROFLOXACIN 400mg IV 400 MG/200 ML BAG IV ONE (09:50)
[2022-04-25] MEDS ORDERED: LANO/MINERAL OIL/PETRO 3.5 GM ONE (10:31)
[2022-04-25] MEDS ORDERED: SUGAMMADEX SODIUM 200 MG/2 ML VIAL IV ONE (10:37)
--- NOTE | 2022-04-25 10:41 | P.BOP ---
Preoperative diagnosis: Pilonidal cyst tender , infected Postoperative diagnosis: same Primary procedure: Wide excisiona of infected tender pilonidal cyst 4x3.5 cm Estimated blood loss: <10cc Specimen: cyst Findings: see dicta Complications: None Transferred to: Recovery Room Condition: Good
[2022-04-25 11:21] VITALS: TEMP 97
[2022-04-25 13:49] VITALS: BP 141/68; O2SAT 94
--- NOTE | 2022-04-25 15:05 | EKG ---
Test Date: 2022-04-22 Test Time: 15:38:14 Electrical Engineering Technologist: WANDA MEASUREMENT RESULTS: Intervals: Rate: 60 SD: 148 QRSD: 142 QT: 432 QTc: 432 [place]: P: 19 SD: 148 QRS: -67 T: 6 INTERPRETIVE STATEMENTS: Normal sinus rhythm Right bundle branch block Left anterior fascicular block Bifascicular block Abnormal ECG Compared to ECG 09/22/2008 17:39:50 Right bundle-branch block now present Left anterior fascicular block now present Bifascicular block now present Left-axis deviation no longer present Electronically Signed On 04-25-22 14:58:11 [facility] by Tru Brothers
--- NOTE | 2022-04-25 15:05 | EKG ---
Test Date: 2022-04-22 Test Time: 15:37:42 Varnish Remover: WANDA MEASUREMENT RESULTS: Intervals: Rate: 59 NC: 150 QRSD: 140 QT: 434 QTc: 429 [place]: P: 59 NC: 150 QRS: -64 T: -4 INTERPRETIVE STATEMENTS: Sinus bradycardia Right bundle branch block Left anterior fascicular block Bifascicular block Abnormal ECG Compared to ECG 09/22/2008 17:39:50 Right bundle-branch block now present Left anterior fascicular block now present Bifascicular block now present Sinus rhythm no longer present Left-axis deviation no longer present Electronically Signed On 04-25-22 14:58:14 [facility]AL[facility] REP by Tru Brothers
--- NOTE | 2022-04-26 21:03 | OP ---
Date of Procedure: 04/25/2022 Surgeon: Hunter Bruno MD Preoperative Diagnosis: Tender pilonidal cyst, infected. Postoperative Diagnosis: Tender pilonidal cyst, infected. Procedure: Wide excision of infected pilonidal cyst, 4 x 3.5 cm. Estimated Blood Loss: Less than 10 cc. Specimen: Cyst. Findings: Patient has a redness with a lump in that region and induration, and the etiology of that is unknown, so we have to remove that area, but we could not see any connection to the rectum. It lo oks going mainly towards the coccyx itself. Indication: This is a case of a male, who comes to us with a mass on the back with inflammation, ten derness, lump. He took antibiotics, improved, and he still have a lump in that area, still redness w ith induration and very tender. The patient diagnosed with a pilonidal cyst, came to my office and christine smalls explained the wide excision of infected pilonidal cyst, which include, but not limited to, infectio n, bleeding, damage to adjacent structures, anesthesia complication, recurrence, CT, and even . He also understands this may not relieve any symptoms. He might need more than one surgical interve ntion. He understands he may require wound care now or even in the next few days if we close the are a and clinically he does not improve then we have to remove his stitches and leave that area to drain by itself to heal by secondary intention. He understands he will require wound care. He signed a c onsent. The area of concern was marked by me, the patient, and the in the holding room. Description Of Procedure: The patient was brought to the operating room, placed in supine position. Anesthesia was done without complication. The patient was placed in prone position with proper prot ection. A time-out was called. The babatunde-sacral and perianal area were prepped and draped in the usu al sterile fashion. We have the area of maximum induration. We put a probe through that small openi ng in that region, put some methylene blue and then proceeded to remove the area of the lump with the methylene blue involved until completely excised. Area was irrigated. Hemostasis was obtained. en, we proceeded to close this in layers. Since we have no pus in that region right now, we are tryi ng to see if we can close this by primary intention as he want to, although he understands in the nex t few days, if he does not get better he may need to have some packing. The area was closed with the chromic in the deep subcutaneous tissue, then 3-0 chromic, then 3-0 nylon. This was done after irrigation and hemostasis was obtained. Patient tolerated the procedure well. Local anesthet ic was previously placed. DOT/CHRISTA Voice ID: [id number] Report ID: [id number]
--- NOTE | 2022-04-26 21:06 | DS ---
Date of Discharge: 04/25/2022 Diagnosis: Infected pilonidal cyst. Procedure: Wide excision of infected pilonidal cyst. Disposition: Home. Activity: As tolerated. No heavy lifting. Plan: Followup in my office in 1 week. Call for appointment at [phone]. Medications: Patient is already on antibiotics and pain medications. DOT/CHRISTA Voice ID: [id number] Report ID: [id number]
== END 2022-04-25 12:05 | disposition home or self-care (01) ==
LOC: OR 08:25
PROVIDERS: ATTEND Surgery
PROC: 0JB90ZZ Excision of Buttock Subcutaneous Tissue and Fascia, Open Approach (ICD-10-PCS; principal; 2022-04-25 10:30)
DX: L05.91 Pilonidal cyst without abscess (principal); I10 Essential (primary) hypertension; E78.00 Pure hypercholesterolemia, unspecified; E11.9 Type 2 diabetes mellitus without complications; K21.9 Gastro-esophageal reflux disease without esophagitis; Z85.528 Personal history of other malignant neoplasm of kidney
CPT/HCPCS: 93005 ×2; 85025; 80048; 36415; 82947 ×2; 88304; 71046; 11770; J2704; J2001; J3010; J1100; Q9968; J7030; J2405; J0744

== ENCOUNTER 2024-03-11 07:39 | Day surgery (SDC) | payer OTHER ==
[2024-03-08 12:03] LABS: Absolute Basophils 0.2 K/uL (0-0.5); Absolute Eosinophils 0.6 K/uL (0-0.5); Absolute Monocytes 0.9 K/uL (0.1-1.3); Absolute Neutrophil 7.1 K/uL (1.8-8.0); Basophils % 1.4 % (0-1.3); Eosinophils % 5.2 % (0-4.4); Hemoglobin 13.3 g/dL (13.6-17.9); Lymphocytes % 18.7 % (15.3-44.8); MCH 30.5 pg (27.0-35.0); MCHC 32.4 g/dL (32.0-36.0); MCV 94.1 fL (80-100); MPV 9.2 fL (7.6-11.3); Monocytes % 8.5 % (3.3-12.3); Neutrophils % 66.2 % (41.7-73.7); Platelets 294 thou/uL (152-406); RBC Red Blood Cell Count 4.36 M/uL (4.33-5.43); Red Cell Distribution Width 13.9 % (12.1-15.2)
[2024-03-08 12:15] LABS: Anion Gap 8.6 mEq/L (5.0-15.0); Potassium 4.6 mEq/L (3.5-5.1)
--- NOTE | 2024-03-08 12:25 | RAD REPORT ---
EXAMINATION: TWO VIEW CHEST XR CLINICAL INDICATION: Male, 78 years old. [facility] op for day surgery. Hypertension TECHNIQUE: 2 view radiographs of the chest were performed. COMPARISON: 04/22/2022 FINDINGS: The lungs are well inflated and clear. No pneumothorax or sizable effusion. The heart is normal in si ze. Mediastinal contours are unremarkable. IMPRESSION: No acute or significant abnormalities.
[2024-03-11] MEDS: NA CHLORIDE 0.9% 1,000 ML ONE (08:15)
[2024-03-11] MEDS ORDERED: SUCCINYLCHOLINE 20 MG/ML (10 ML) IV ONE (08:25)
[2024-03-11] MEDS ORDERED: LIDOCAINE 2% MPF 5 ML VIAL ONE (08:29)
[2024-03-11] MEDS ORDERED: FENTANYL CITR 100 MCG/2 ML ONE (08:29)
[2024-03-11] MEDS ORDERED: ONDANSETRON 4 MG/2 ML VIAL ONE (08:29)
[2024-03-11] MEDS ORDERED: propofoL 200 MG/20 ML VIAL IV ONE (08:29)
[2024-03-11] MEDS ORDERED: Ciprofloxacin 200mg IV 400 MG/200 ML IV.SOLN. IV ONE (08:31)
--- NOTE | 2024-03-11 09:42 | P.BOP ---
Preoperative diagnosis: infected subQ mass left buttock Postoperative diagnosis: same Primary procedure: Excision infected subQ mass left buttock 4x4cm Estimated blood loss: <10cc Specimen: mass Findings: mass Anesthesia: General Complications: None Transferred to: Recovery Room Condition: Good
[2024-03-11 11:49] VITALS: BP 119/60; TEMP 97; O2SAT 98
--- NOTE | 2024-03-11 23:55 | DS ---
Date of Discharge: 03/11/2024 Diagnosis: Infected left buttock subcutaneous mass. Procedure: Excisional biopsy of infected left buttock subcutaneous mass. Condition: Stable. Disposition: Home. Activity: As tolerated. No heavy lifting. Discharge Instructions: Follow up in my office in 1 week. Call for appointment at [phone]. Keep a jaime dry for 48 hours, then may shower and clean with soap and water and cover with triple antibiotics and gauze. DOT/CHRISTA Voice ID: [id number] Report ID: [id number]
--- NOTE | 2024-03-11 23:55 | OP ---
Date of Procedure: 03/11/2024 Surgeon: Hunter Bruno MD Preoperative Diagnosis: Infected subcutaneous left buttock mass. Postoperative Diagnosis: Infected subcutaneous left buttock mass. Procedure: Excisional biopsy of subcutaneous mass, left buttock, 4 x 4 cm. Estimated Blood Loss: Less than 10 mL. Specimen: Mass. Findings: Mass. Anesthesia: General plus local. Complications: None. Indications: This is the case of a male, who comes to us with a tender left buttock mass, previously infected, treated with antibiotics, now he wants the lump removed. The benefits, alternatives, and risks of excision were fully explained, which include, but not limited to infection, bleeding, damage to adjacent structures, anesthesia complication, recurrence, ID, and even . He also understand s this may not relieve any symptoms. He might need more than one surgical intervention. He understo od and signed the consent. The area of concern was marked by me and the patient in the holding room. Description Of Procedure: The patient was brought to the operating room, placed in supine position, anesthesia was done without complication. The patient was placed in lateral decubitus position with proper protection. After that, a wedge incision was made on the skin all the way down to where we fo und normal tissue. The mass was completely excised. The area was irrigated. Hemostasis was obtaine d. Local anesthesia was applied and then we proceeded to close this in layers with 3-0 chromic in a deep layers, mid layers, and then the nylon to close the skin. Sponge count and instrument counts we re correct. The patient tolerated the procedure well. The patient was sent to recovery in stable co ndition. DOT/CHRISTA Voice ID: [id number] Report ID: [id number]
== END 2024-03-11 10:48 | disposition home or self-care (01) ==
LOC: PRE 07:39 → OR 10:48
PROVIDERS: ATTEND Surgery
PROC: 0JB90ZZ Excision of Buttock Subcutaneous Tissue and Fascia, Open Approach (ICD-10-PCS; principal; 2024-03-11 09:15)
DX: L90.5 Scar conditions and fibrosis of skin (principal); L53.8 Other specified erythematous conditions
CPT/HCPCS: 11404; 85025; 80048; 36415; 82947 ×2; 88305; 71046; J2704; J2003; J3010; J0744; J2405; J7030; 88304